=== PATIENT | female | born 1990 | race Two or more races ===

== ENCOUNTER 2018-08-14 09:08 | Outpatient (CLI) | payer OTHER | END 2018-08-14 10:04 | disposition home or self-care (01) | LOC: NST 09:08 | DX: Z34.83 Encounter for supervision of other normal pregnancy, third trimester (principal) ==

== ENCOUNTER 2018-08-17 12:34 | Inpatient (IN) | payer OTHER ==
[~2018-08-17] VITALS: Ht 160 cm; Wt 2.3 kg
[2018-08-25] MEDS ORDERED: PRENATABS RX T1 EACH PO (17:11)
== END 2018-08-29 13:16 | DRG 788 ==
LOC: OB/GYN 08-25 15:25 → LDR 08-25 15:25 → OB/GYN 08-26 16:24
PROVIDERS: ADMIT Obstetrics & Gynecology Maternal & Fetal Medicine
PROC: 4A1HXCZ Monitoring of Products of Conception, Cardiac Rate, External Approach (ICD-10-PCS; 2018-08-25)
PROC: 10D00Z1 Extraction of Products of Conception, Low, Open Approach (ICD-10-PCS; principal; 2018-08-26 15:00)
DX: O62.0 Primary inadequate contractions (principal); O36.5930 Maternal care for other known or suspected poor fetal growth, third trimester, not applicable or unspecified; Z3A.38 38 weeks gestation of pregnancy; Z37.0 Single live birth

== ENCOUNTER 2018-08-20 08:33 | Outpatient (CLI) | payer OTHER | END 2018-08-20 09:39 | disposition home or self-care (01) | LOC: NST 08:33 | DX: Z34.83 Encounter for supervision of other normal pregnancy, third trimester (principal) ==

== ENCOUNTER 2018-08-25 09:55 | Outpatient (CLI) | payer OTHER ==
[2018-08-25] MEDS ORDERED: PRENATABS RX T1 EACH PO (17:11)
== END 2018-08-25 11:09 | disposition home or self-care (01) ==
LOC: NST 09:55
DX: Z34.83 Encounter for supervision of other normal pregnancy, third trimester (principal)

== ENCOUNTER 2023-08-26 10:15 | Inpatient (IN) | payer OTHER ==
[~2023-08-26] VITALS: Ht 152.4 cm; Wt 103.9 kg
[~2023-08-26 10:15] MED LIST: PRENATABS RX T1 EACH PO
[2023-08-26] MEDS ORDERED: PROAIR RESPICL90 MCG IH (11:25)
[2023-08-26] MEDS ORDERED: SYMBICORT 16010.2 GM IH (11:26)
[2023-08-26 11:57] LABS: HEMATOCRIT 37.1 % (36.0-45.00); HEMOGLOBIN 12.6 g/dL (12.0-15.00); MEAN CELL VOLUME 85.9 fL (80.00-100.00); MEAN CORPUSCULAR HEMOGLOBIN 29.2 pg (27.00-32.0); PLATELET COUNT 278 K/uL (150-450); RED BLOOD COUNT 4.32 M/uL (4.00-6.00); RED CELL DISTRIBUTION WIDTH 13.8 % (11.5-14.5)
[2023-08-26 12:35] LABS: ALBUMIN 2.8 gm/dL (3.4-5.0); BILIRUBIN TOTAL 0.44 mg/dL (0.3-1.2); CALCIUM 9.8 mg/dL (8.5-10.1); CREATININE SERUM 0.45 mg/dL (0.55-1.02); GFR 159.49; GLOBULINA 3.9 G/DL (2.4-3.5); POTASSIUM 4.31 mEq/L (3.5-5.1); TOTAL PROTEIN 6.7 gm/dL (6.4-8.2)
[2023-08-26 12:40] LABS: INR < 0.93; PARTIAL THROMBOPLASTIN TIME 29.5 SECONDS (22.0-34.0); PROTHROMBIN TIME 9.8 SECONDS (9.0-11.5)
[2023-09-10] MEDS ORDERED: RINGERS SOLUTION,LACTATED 1,000 ML IV SCH (10:30)
[2023-09-10] MEDS ORDERED: CITRIC ACID/SODIUM CITRATE 30 ML BLIST.PACK PO SCH (10:30)
[2023-09-10] MEDS ORDERED: CEFOXITIN SODIUM 2,000 MG VIAL IV SCH (10:30)
[2023-09-10] MEDS ORDERED: OXYTOCIN 10 UNITS/ML VIAL ONE ×3 (13:47→17:58)
[2023-09-10] MEDS ORDERED: ERYTHROMYCIN BASE 3.5 GM OINT...G. OP ONE (13:48)
[2023-09-10] MEDS ORDERED: CEFOXITIN SODIUM 2,000 MG VIAL IV ONE (13:56)
[2023-09-10] MEDS ORDERED: CITRIC ACID/SODIUM CITRATE 30 ML BLIST.PACK PO ONE (13:56)
[2023-09-10] MEDS ORDERED: MEPERIDINE HCL/PF 50 MG/ML VIAL IM PRN (15:15)
[2023-09-10] MEDS ORDERED: IBUprofen 400 MG TABLET PO PRN (15:15)
[2023-09-10] MEDS ORDERED: OXYTOCIN 1,000 ML IV SCH (15:15)
[2023-09-10] MEDS ORDERED: OXYTOCIN 10 UNITS/ML VIAL IV ONE (15:45)
[2023-09-10] MEDS ORDERED: ERYTHROMYCIN BASE 1 GM TUBE OP ONE (15:45)
[2023-09-11] MEDS ORDERED: OxyCODONE HCL/APAP UD (PERCOCET) PO PRN (08:00)
[2023-09-11 14:38] LABS: HEMATOCRIT 35.9 % (36.0-45.00); HEMOGLOBIN 11.9 g/dL (12.0-15.00); MEAN CELL VOLUME 86.8 fL (80.00-100.00); MEAN CORPUSCULAR HEMOGLOBIN 28.7 pg (27.00-32.0); PLATELET COUNT 270 K/uL (150-450); RED BLOOD COUNT 4.14 M/uL (4.00-6.00); RED CELL DISTRIBUTION WIDTH 13.9 % (11.5-14.5)
[2023-09-12] MEDS ORDERED: SIMETHICONE 125 MG CAPSULE PO SCH (00:10)
== END 2023-09-13 12:08 | disposition home or self-care (01) | DRG 788 ==
LOC: LDR 09-10 08:30 → OB/GYN 09-10 09:51 → LDR 09-10 09:51 → O/R 09-10 15:43 → OB/GYN 09-10 16:24
PROVIDERS: ADMIT Obstetrics & Gynecology; ATTEND Obstetrics & Gynecology
PROC: 4A1HXCZ Monitoring of Products of Conception, Cardiac Rate, External Approach (ICD-10-PCS; 2023-09-10)
PROC: 10D00Z1 Extraction of Products of Conception, Low, Open Approach (ICD-10-PCS; principal; 2023-09-10 08:30)
DX: O34.211 Maternal care for low transverse scar from previous cesarean delivery (principal); Z3A.39 39 weeks gestation of pregnancy; Z37.0 Single live birth; Z20.822 Contact with and (suspected) exposure to COVID-19